=== PATIENT | male | born 1955 | race Caucasian/White ===

== ENCOUNTER → 2016-09-17 | Outpatient (CLI) | payer OTHER ==
[~2016-09-17] MED LIST: GADOBUTROL 10 ML VIAL IVP ONE
--- NOTE | 2016-09-17 11:41 | MR ---
MRI upper extremity, right hand without and with contrast History: Left finger infection and cellulitis. Evaluate for osteomyelitis. ICD-10 code L03.019. Technique: MRI was performed of the right hand using a 1.5 Dena MRI system. Sagittal, coronal, and a xial imaging was obtained with standard imaging sequences. [id number] included the metacarpals and phalanges. Images were obtained pre and postintravenous contrast, 8 mL Gadavist. Findings: There is edema in the subcutaneous fat at the palmar aspect of the hand at the level of the third metacarpophalangeal joint. This is contiguous with the flexor tendon sheath, which has mild fl uid distention and enhancement beginning at the level of the distal metaphysis of the metacarpal and extending distally to the middle phalanx. The flexor tendon is normal in appearance and signal intens ity without attenuation. No evidence for joint effusion or abnormal enhancement. No significant bone marrow abnormality or abnormal enhancement or lytic lesion to suggest osteomyelitis. Impression: Cellulitis at the esqueda aspect of the third metacarpophalangeal joint with tenosynovitis of the flexor tendon. No evidence for osteomyelitis.
== END ==
LOC: FIMAGING 08:15
PROVIDERS: ATTEND Internal Medicine Infectious Disease
DX: L03.011 Cellulitis of right finger (principal)
CPT/HCPCS: A9585